=== PATIENT | male | born 1960 | race Caucasian/White ===

== ENCOUNTER 2017-07-26 18:39 | Emergency (ER) | payer MEDICAID ==
[2017-07-26 18:46] VITALS: TEMP 98.2; O2SAT 95
[2017-07-26] MEDS ORDERED: AMOXICILLIN/CLAVULANATE POT 875/125 MG TAB PO ONE (19:41)
--- NOTE | 2017-07-26 19:44 | EDPHY ---
H & P Stated Complaint: cat scratch left arm last weekend, concerned re infection Time Seen by Provider: 07/26/17 18:53 HPI/ROS: CHIEF COMPLAINT: Left arm erythema HISTORY OF PRESENT ILLNESS: The patient presents to the ED with complaints of left arm erythema for the past day. The patient reportedly was scratched by a cat earlier in the week. He denies any joint pain or fever. The patient denies history of diabetes or other comorbidities. The patient has no complaints of associated numbness or weakness. REVIEW OF SYSTEMS: A comprehensive 10 point review of systems is otherwise negative aside from elements mentioned in the history of present illness. Source: Patient Exam Limitations: No limitations - Personal History Current Tetanus/Diphtheria Vaccine: Yes Current Tetanus Diphtheria and Acellular Pertussis (TDAP): Yes Tetanus Vaccine Date: 2013 - Medical/Surgical History Hx Asthma: No Hx Chronic Respiratory Disease: No Hx Diabetes: No Hx Cardiac Disease: No Hx Renal Disease: No Hx Cirrhosis: No Hx Alcoholism: No Hx HIV/AIDS: No Hx Splenectomy or Spleen Trauma: No Other PMH: none reported - Social History Smoking Status: Former smoker - Physical Exam Exam: General Appearance: Alert, no distress Respiratory: There are no retractions, lungs are clear to auscultation Cardiovascular: Regular rate and rhythm Gastrointestinal: Abdomen is soft and nontender, no masses, bowel sounds normal Neurological: 5/5 strength throughout the left upper extremity, normal sensory function Skin: Very mild erythema noted to the left upper extremity Musculoskeletal: No clinical evidence of a septic arthritis involving the wrist or elbow Extremities: symmetrical, full range of motion Constitutional: Initial Vital Signs Temperature (C) 36.8 C 07/26/17 18:42 Heart Rate 73 07/26/17 18:42 Respiratory Rate 18 07/26/17 18:42 Blood Pressure 134/80 H 07/26/17 18:42 O2 Sat (%) 95 07/26/17 18:42 O2 Delivery Mode Room Air Allergies/Adverse Reactions: No Known Allergies Allergy (Unverified 07/26/17 18:42) Home Medications: Medication Instructions Recorded Amoxicillin/Clavulanate Pot 875 mg PO BID #20 tab 07/26/17 [Augmentin 875 mg tablet] Medical Decision Making ED Course/Re-evaluation: The patient presents to the ED with a very mild cellulitis to his left forearm. There is no clinical evidence of a septic arthritis or abscess. The patient is neurologically intact. The patient will be given a prescription for Augmentin. He was given his 1st dose in the emergency department. He will be discharged home with customary aftercare instructions and return precautions. Differential Diagnosis: Differential diagnosis considered includes cellulitis, abscess, necrotizing fasciitis, septic arthritis - Data Points Medications Given: Discontinued Medications Amoxicillin/Clavulanate Potassium (Augmentin 875mg) 875 mg PO EDNOW ONE PRN Reason: Protocol Stop: 07/26/17 19:42 Last Admin: 07/26/17 19:50 Dose: 875 mg Departure - Departure Disposition: Home, Routine, Self-Care Clinical Impression: Cellulitis Qualifiers: Site of cellulitis: extremity Site of cellulitis of extremity: upper extremity Laterality: left Qualified Code(s): L03.114 - Cellulitis of left upper limb Condition: Good Instructions: Cellulitis (ED) Additional Instructions: 1. Please take antibiotics as directed for next 10 days. 2. Return to the ED form worsening symptoms, increasing pain, swelling or other concerns. Referrals: KATHY CHARLES [Other] - As per Instructions Prescriptions: Amoxicillin/Clavulanate Pot [Augmentin 875 mg tablet] 875 mg PO BID #20 tab
[2017-07-26 20:15] VITALS: BP 107/75; PULSE 71; RESP 16
== END 2017-07-26 20:14 | disposition home or self-care (01) ==
DX: L03.114 Cellulitis of left upper limb (principal); Z87.891 Personal history of nicotine dependence